=== PATIENT | female | born 1980 | race African-American/Black ===

== ENCOUNTER 2025-03-16 02:38 | Emergency (ER) | payer OTHER ==
[~2025-03-16] VITALS: Ht 180.3 cm; Wt 54.9 kg
[2025-03-16 02:43] VITALS: BP 126/82
[2025-03-16] MEDS ORDERED: NEOMY/BACITRA/POLYMYXIN B OINT UD PACKET TP ONE (03:00)
[2025-03-16] MEDS: NEOMY/BACITRA/POLYMYXIN B OINT UD PACKET TP ONE (03:00)
[2025-03-16] MEDS ORDERED: CYCL5TAB PO (04:00)
[2025-03-16] MEDS ORDERED: NAPR-1009 PO (04:00)
[2025-03-16 04:16] VITALS: BP 126/82; O2SAT 97
== END 2025-03-16 04:00 | disposition home or self-care (01) ==
LOC: ER 02:46
DX: S61.214A Laceration without foreign body of right ring finger without damage to nail, initial encounter (principal); S39.012A Strain of muscle, fascia and tendon of lower back, initial encounter; W26.0XXA Contact with knife, initial encounter; Y93.89 Activity, other specified; Y92.89 Other specified places as the place of occurrence of the external cause; Y99.8 Other external cause status
CPT/HCPCS: 72100; A4606; A4663